=== PATIENT | male | born 1930 | race Caucasian/White ===

== ENCOUNTER 2018-11-02 03:58 | Emergency (ER) | payer OTHER ==
[~2018-11-02] VITALS: Ht 180.3 cm; Wt 68.0 kg
[2018-11-02] MEDS ORDERED: FINASTERIDE5 MG PO (04:03)
[2018-11-02] MEDS ORDERED: BP MEDICATION (04:09)
[2018-11-02 04:24] LABS: URINE BILIRUBIN NEGATIVE (Negative); URINE BLOOD TRACE (Negative); URINE CLARITY CLEAR; URINE COLOR YELLOW; URINE GLUCOSE-RANDOM* NEGATIVE (Negative); URINE KETONES NEGATIVE (Negative); URINE LEUKOCYTES-REFLEX NEGATIVE (Negative); URINE NITRITE-REFLEX NEGATIVE (Negative); URINE PROTEIN (DIPSTICK) NEGATIVE (Negative); URINE SPECIFIC GRAVITY <= 1.005 (1.005-1.035); URINE UROBILINOGEN 0.2 E.U./dl (0.2-1.0)
[2018-11-02 04:56] LABS: ABSOLUTE NEUTROPHILS 3.8 thou/uL (1.4-8.2); BASOPHILS 0.4 % (0.0-2.0); EOSINOPHILS 3.6 % (0.0-3.0); HEMATOCRIT 38.1 % (42.0-52.0); HEMOGLOBIN 12.5 gm/dL (14.0-18.0); MCH 30.7 pg (26.0-34.0); MCHC 32.7 g/dL (28.0-37.0); MONOCYTES 9.4 % (1.0-8.0); PLATELET COUNT 134 thou/uL (150-400); POLYS 61.6 % (36.0-66.0); RBC 4.06 mil/uL (4.50-6.00); RDW 13.6 % (10.5-14.5); WBC 6.2 thou/uL (4.0-11.0)
[2018-11-02 05:00] LABS: CALCIUM 9.6 mg/dL (8.5-10.1); CREATININE 1.1 mg/dL (0.7-1.3); POTASSIUM 3.7 mmol/L (3.5-5.1)
[2018-11-02] MEDS ORDERED: FLOMAX0.4 MG PO (06:02)
[2018-11-02 06:23] VITALS: BP 183/73
== END 2018-11-02 06:25 | disposition home or self-care (01) ==
LOC: ER 03:58
PROVIDERS: Emergency Medicine
DX: R39.11 Hesitancy of micturition (principal); I10 Essential (primary) hypertension; Z79.899 Other long term (current) drug therapy; Z88.0 Allergy status to penicillin

== ENCOUNTER 2018-11-02 15:49 | Emergency (ER) | payer OTHER ==
[~2018-11-02] VITALS: Ht 188 cm; Wt 90.7 kg
[~2018-11-02 15:49] MED LIST: BP MEDICATION; FINASTERIDE5 MG PO; FLOMAX0.4 MG PO
[2018-11-02 18:00] LABS: URINE BILIRUBIN NEGATIVE (Negative); URINE BLOOD 2+ (Negative); URINE CLARITY CLEAR; URINE GLUCOSE-RANDOM* NEGATIVE (Negative); URINE KETONES NEGATIVE (Negative); URINE LEUKOCYTES-REFLEX NEGATIVE (Negative); URINE NITRITE-REFLEX NEGATIVE (Negative); URINE PROTEIN (DIPSTICK) NEGATIVE (Negative); URINE UROBILINOGEN 0.2 E.U./dl (0.2-1.0)
[2018-11-02 18:01] LABS: URINE COLOR YELLOW
[2018-11-02 18:06] LABS: BACTERIA-REFLEX None Seen /HPF (None Seen); CASTS None Seen /LPF (None Seen); CRYSTALS None Seen /LPF (None Seen); SQUAMOUS None Seen /LPF (0-3); URINE WBC-REFLEX None Seen /HPF (0-5)
[2018-11-02 19:53] VITALS: BP 186/74
== END 2018-11-02 20:21 | disposition home or self-care (01) ==
LOC: ER 15:49
PROVIDERS: Emergency Medicine
DX: R33.9 Retention of urine, unspecified (principal); I10 Essential (primary) hypertension; Z88.0 Allergy status to penicillin; Z90.49 Acquired absence of other specified parts of digestive tract